=== PATIENT | male | born 1960 | race Caucasian/White ===

== ENCOUNTER → 2019-07-28 10:14 | Outpatient (BNVA) | payer MEDICAID, SELFPAY | PROVIDERS: Family Provider Family Medicine; PCP Plastic Surgery; Visit Provider Psychiatry & Neurology Psychiatry | DX: F31.74 Bipolar disorder, in full remission, most recent episode manic (principal); F60.3 Borderline personality disorder | CPT/HCPCS: 99213 ==

== ENCOUNTER → 2019-11-17 08:54 | Outpatient (BNVA) | payer MEDICAID, SELFPAY | PROVIDERS: Family Provider Family Medicine; Visit Provider Psychiatry & Neurology Psychiatry | DX: F31.9 Bipolar disorder, unspecified (principal); F42.9 Obsessive-compulsive disorder, unspecified; F60.3 Borderline personality disorder; F90.2 Attention-deficit hyperactivity disorder, combined type | CPT/HCPCS: 99213 ==

== ENCOUNTER → 2019-12-11 07:52 | Outpatient (BNVA) | payer MEDICAID, SELFPAY | PROVIDERS: Family Provider Family Medicine; Visit Provider Psychiatry & Neurology Psychiatry | DX: F60.3 Borderline personality disorder (principal); F42.9 Obsessive-compulsive disorder, unspecified; F31.9 Bipolar disorder, unspecified | CPT/HCPCS: 99213 ==

== ENCOUNTER → 2020-02-27 09:17 | Outpatient (BNVA) | payer MEDICAID, SELFPAY | PROVIDERS: Family Provider Family Medicine; Visit Provider Psychiatry & Neurology Psychiatry | DX: F60.3 Borderline personality disorder (principal); F42.9 Obsessive-compulsive disorder, unspecified; F31.9 Bipolar disorder, unspecified | CPT/HCPCS: 99213 ==

== ENCOUNTER 2020-04-26 13:21 | Emergency (ER) | payer MEDICAID, SELFPAY ==
[2020-04-26 14:22] VITALS: BP 126/76; PULSE 85; RESP 16; TEMP 36.9; O2SAT 96; BMI 38.0
--- NOTE | 2020-04-26 15:32 | ED_ITS ---
HPI - Abdominal Pain General: Chief Complaint: Abdominal Pain Stated Complaint: abdominal pain Time Seen by Provider: 04/26/20 15:26 Source: patient Mode of arrival: ambulatory Limitations: no limitations History of Present Illness: HPI narrative: Scott is a nice 59-year-old male comes in complaining of intermittent cramping abdominal pain for the past week. He states the pain comes and goes. He describes it as a cramping pain diffusely throughout his abdomen. He denies any associated fever, nausea or vomiting or diarrhea. He has been having normal stools. He denies any urinary symptoms such as urinary frequency or urgency. He is unaware of anything that makes his symptoms better or worse. He states he had similar symptoms in the past that of just run their course but he states this time his symptoms have persisted longer than normal. He denies any surgeries on his abdomen in the past. Associated Symptoms: Denies chills, coffee ground emesis, constipation, GI cramping, diarrhea, dysuria, fever(s), heartburn, hematochezia, hematuria, hematemesis, melena, nausea, syncope and vomiting Review of Systems Const: Denies: fever(s), chills, body aches, fatigue, malaise or diaphoresis Eyes: Denies: change in vision, blurry vision, photophobia, eye discomfort, eye discharge, eye redness or yellow eyes ENMT: Denies: throat pain, odynophagia, hoarseness, swelling of lips/tongue, ear or mastoid pain, ear discharge, change in hearing or nasal discharge Card: Denies: chest pain, palpitations, irregular heart rhythm, edema, lightheadedness, syncope, pre-syncope, dyspnea on exertion or orthopnea Resp: Denies: dyspnea, productive cough, non-productive cough, wheezing, hemoptysis or chest congestion GI: Reports: abdominal pain; Denies: nausea, vomiting, hematemesis, coffee ground emesis, heartburn, diarrhea, constipation, GI cramping, hematochezia or melena : Denies: flank pain, dysuria, urinary frequency, urinary urgency or hematuria Musc: Denies: neck pain, back pain, extremity pain, extremity swelling, joint pain, joint swelling, joint redness, joint warmth or joint stiffness Skin/Breast: Denies: rash, pruritus, erythema, skin pain or skin tenderness Neuro: Denies: headache(s), numbness in extremities, weakness in extremities, sensory changes, lack of coordination, difficulty walking, dizziness, vertigo, confusion, Slurred speech present or seizure-like activity Humberto/Lymph: Denies: easy bruising, easy bleeding, petechiae, purpura or enlarged lymph nodes All/Imm: Denies: urticaria, throat swelling, tongue swelling, facial swelling or acute wheezing PFSH ED PFSH: Medical History Bipolar disorder Borderline personality disorder Obsessive compulsive disorder Social History Smoking and tobacco status: former smoker Second hand smoke exposure: No Alcohol intake: never Substance/Drug Use: never Physical Exam Const: COMMON NORMALS: no acute distress, patient oriented x3, no limitations and alert GENERAL APPEARANCE: cooperative HENMT: COMMON NORMALS: normocephalic, atraumatic, external ears normal, EAC's normal and Normal external nose present HEAD & SCALP: normal to inspection, normocephalic and atraumatic FACE & SINUS: normal facial exam and face symmetric NOSE: Normal external nose present and Normal nares present EXTERNAL EAR: Yes external ears normal EXTERNAL AUDITORY CANAL: EAC's normal MOUTH: Normal oral and palatal mucosa present, lip normal and tongue normal Eye: COMMON NORMALS: Equal, round and reactive pupils present and conjunctivae normal GENERAL EYE: appearance normal, both eyes and all related structures ALIGNMENT: Yes alignment normal PERIORBITAL: periorbital findings normal EYELID: eyelids normal CONJUNCTIVA: Yes conjunctivae normal SCLERA: sclerae normal PUPIL: Yes Equal, round and reactive pupils present Neck/C-Spine: COMMON NORMALS: full ROM, no lymphadenopathy, supple, no meningeal signs and no JVD GENERAL: Yes normal visual inspection and Yes trachea midline Chest: COMMONS NORMALS: normal inspection of the chest and normal palpation of entire chest wall Resp: COMMON NORMALS: normal respiratory effort, No retractions, No use of accessory muscles and clear to auscultation bilaterally EFFORT & INSPECTION: Yes able to speak in complete sentences and Yes symmetric chest movement AUSCULTATION: clear to auscultation bilaterally, no crackles, no rales, no rhonchi and no wheezes Cardio: COMMON NORMALS: no JVD, regular rate, regular rhythm, S1 normal heart sound present and S2 normal heart sound present RATE: regular rate RHYTHM: regular rhythm HEART SOUNDS: S1 normal heart sound present, S2 normal heart sound present, no click, no gallops, no murmurs and no rubs GI: COMMON NORMALS: Soft to palpation and No hepatosplenomegaly present PALPATION: Yes Soft to palpation, No Tenderness to palpation present (GI), No Guarding due to palpation present (GI), No Rigid due to palpation, Yes No hepatosplenomegaly present, No Hernia present, No Palpable mass present and No Pulsatile mass present : COMMON NORMALS: Yes no CVA tenderness BLADDER/KIDNEY EXAM: Yes no CVA tenderness Back/Pelvis: COMMON NORMALS: no CVA tenderness, thoracic and lumbar spine normal to inspection, no thoracic nor lumbar tenderness and thoraco-lumbar ROM normal Extremity: COMMON NORMALS: normal to inspection, full ROM, capillary refill normal, no joint enlargement, no clubbing, cyanosis or edema and no calf tenderness Neuro: COMMON NORMALS: patient oriented x3, CN's II-XII intact bilaterally, moves all extremities, no focal motor deficits and no sensory deficits noted SENSORIUM/ORIENTATION: Yes alert MENINGEAL SIGNS: Yes no meningeal signs SPEECH: speech normal Psych: COMMON NORMALS: mental status grossly normal, Normal thought process present, cooperative, normal affect, speech normal and activity/motor behavior normal SPEECH: Yes normal speech THOUGHT PROCESS: Normal thought process present Skin: COMMON NORMALS: no rashes or lesions noted, turgor normal, no jaundice, no petechiae and no mottling GENERAL SKIN EXAM: no rashes or lesions noted and turgor normal Course Vital Signs: Vital signs: Vital Signs Temperature 98.3 F 04/26/20 18:36 Pulse Rate 70 04/26/20 18:36 Respiratory Rate 17 04/26/20 18:36 Blood Pressure 140/82 04/26/20 18:36 Pulse Oximetry 98 04/26/20 18:36 MDM - Abdominal Pain MDM Narrative: Medical decision making narrative: 1807 -the patient is feeling better here with just IV hydration. His lipase is not elevated nor are his liver enzymes, T bili or alk phos. He does not have focal right upper quadrant pain. It is possible this is early pancreatitis but at this time it is only by CT and they are calling it mild. Patient does not have significant abdominal tenderness, he is not febrile and he has no nausea or vomiting. Patient would like to go home but understands that this could be the beginning of something that will get worse and agrees to return if he is having any pain at all after the next 12 hours. He understands to return sooner if his symptoms worsen. Lab Data: Attestation: I reviewed the patient's lab results. Labs: Lab Results 04/26/20 04/26/20 04/26/20 Range/Units 15:51 15:51 16:10 WBC 17.2 H (4.0-10.0) 10^3/ uL RBC 4.54 (4.1-5.3) 10^6/u L Hgb 14.6 (11.7-16.6) g/dL Hct 43.3 (42.0-52.0) % MCV 95.4 H (80-94) fL MCH 32.2 (28.0-34.0) pg MCHC 33.7 (30.0-36.0) g/dL RDW 13.3 (12.1-15.1) % Plt Count 321 (130-400) 10^3/c mm MPV 8.9 (7.4-10.4) fL Neut % (Auto) 71.2 % Lymph % (Auto) 16.3 % Geary % (Auto) 9.5 % Eos % (Auto) 2.0 % Baso % (Auto) 0.3 % Neut # (Auto) 12.23 H (1.8-7.7) 10^3/u L Lymph # (Auto) 2.8 (0.8-4.8) 10^3/u L Geary # (Auto) 1.6 H (0.2-0.9) 10^3/u L Eos # (Auto) 0.4 (0.0-0.8) 10^3/u L Baso # (Auto) 0.1 (0.0-0.1) 10^3/u L Nucleated RBC % (a uto) 0 % Nucleated RBCs # 0.0 /100WBC Sodium 136 (136-145) mmol/L Potassium 4.6 (3.5-5.1) mmol/L Chloride 97 L (98-107) mmol/L Carbon Dioxide 28 (22-29) mmol/L Anion Gap 15.6 (5-19) BUN 6 (6-20) mg/dL Creatinine 0.8 (0.7-1.2) mg/dL GFR Calculation 99.3 (90-130) mL/min Glucose 134 H (65-115) mg/dL Calculated Osmolal ity 282 L (285-295) mOsm/k g Calcium 9.5 (8.5-10.5) mg/dL Total Bilirubin 0.3 (0.15-1.2) mg/dL AST 13 (0-40) U/L ALT 11 (0-41) U/L Alkaline Phosphata se 108 (40-130) IU/L Total Protein 7.7 (6.6-8.7) g/dL Albumin 4.4 (3.5-5.2) g/dL Globulin 3.3 (1.3-4.6) g/dL Lipase 30 (13-60) U/L Urine Color Straw (Yellow) Urine Appearance Clear (CLEAR) Urine pH 7 (5-7) Ur Specific Gravit y 1.005 (1.005-1.030) Urine Protein Neg (Negative) Urine Glucose (UA) Norm (Normal) Urine Ketones Negative (Negative) Urine Blood Neg (Negative) Urine Nitrate Negative (Negative) Urine Bilirubin Neg (Negative) Urine Urobilinogen Neg (Negative) mg/dL Ur Leukocyte Taryn ase Negative (Negative) Imaging Data ^: CT Abd/Pel: Radiologist's impression: [place] [address] CT Scan Report Signed with Addenda Patient: Scott Webber Unit #: [id number] : [id number] Age/Sex: 59 / M ADM Date: 04/26/20 Loc: ER Room/Bed: Attending Dr: Ordering Provider/Ordering MD: Lalita Peoples DO Date of Service: 04/26/20 Procedure(s): CT abdomen pelvis w con* [id number] Accession Number(s): [id number] Report Number: [id number]/CT abdomen pelvis w con* [id number] Please note the correction to the original report: The right and left ureters are unremarkable. Stable diffuse, mild wall thickening of the bladder. In the correct clinical setting, this may suggest cystitis. Recommend correlation with laboratory findings. Alternatively, this may be secondary to chronic outlet obstruction. Radiation Dose CTDIVOL = (mGy): DLP = 1706.12 (mGy-cm) Addendum Dictated By: Tayla Walters MD Addendum Signed By: Tayla Walters MD Signed Date/Time: 04/26/20 1749 Addendum Cosigned By: PROCEDURE INFORMATION: Exam: CT Abdomen And Pelvis With Contrast Exam date and time: 04/26/2020 4:35 PM Age: 59 years old Clinical indication: Abdominal pain; Generalized; Prior surgery; Surgery date: 6+ months; Surgery type: Appy, RT orechiectomy TECHNIQUE: Imaging protocol: Computed tomography of the abdomen and pelvis with intravenous contrast. Radiation optimization: All CT scans at this facility use at least one of these dose optimization techniques: automated exposure control; mA and/or kV adjustment per patient size (includes targeted exams where dose is matched to clinical indication); or iterative reconstruction. Contrast material: OMNIPAQUE 300; Contrast volume: 95 ml; Contrast route: INTRAVENOUS (IV); COMPARISON: CT abdomen pelvis w con* [id number] 05/15/2019 12:55 PM RADIATION DOSE METRICS: Total DLP (mGy-cm): 1706.12 FINDINGS: Lungs: Visualized lungs are clear. Pleural space: No pleural effusion. Heart: Visualized portions of the heart are unremarkable. Liver: The visualized liver is unremarkable. Gallbladder and bile ducts: No biliary ductal dilatation. Pancreas: Enlargement of the body and tail of the pancreas with associated peripancreatic inflammatory change and small amount of free fluid, consistent with focal mild acute pancreatitis. No evidence for pancreatic necrosis. Insert pancreatic ductThe gallbladder is contracted. This may be due to a postprandial state. No pericholecystic fluid. Spleen: Calcified granuloma in the spleen. Findings are stable. Adrenals: The right and left adrenal glands are unremarkable. Kidneys and ureters: Stable subcentimeter hypodense foci in both right and left kidneys that are too small to characterize, however likely represent small cysts. Stable indeterminate hyperdense focus in the right kidney. Hounsfield units show density greater than expected for simple fluid. This measures 1.4 x 1.6 cm, stable in size (series 2, image 36). Stable cyst in the left kidney measuring 1.6 cm (series 2, image 33). Stomach and bowel: No obstruction. No mucosal thickening. Appendix: Appendix not definitely visualized. No inflammatory changes in the pericecal region however. Intraperitoneal space: No free intraperitoneal air. No ascites. No loculated fluid collections to suggest an abscess. Vasculature: Minimal atherosclerotic changes in the visualized arteries. No evidence for aortic aneurysm or aortic dissection. Hepatic veins, portal veins, splenic vein, and SMV are patent. Lymph nodes: No lymphadenopathy. Urinary bladder: Insert uretersStable diffuse, mild wall thickening of the bladder. Reproductive: Unremarkable as visualized. Bones/joints: Mild degenerative changes at both the right and left hips. Multilevel degenerative changes of varying severity in the visualized spine. Stable left unilateral pars defect at L5. Soft tissues: No acute abnormality in the extra-abdominal soft tissues. CT/CT abdomen pelvis w con* [id number] IMPRESSION: 1. Changes consistent with focal mild acute pancreatitis involving the body and tail of the pancreas. 2. Stable indeterminate hyperdense focus in the right kidney. 3. Insert uretersStable diffuse, mild wall thickening of the bladder. In the correct clinical setting, this may suggest cystitis. Recommend correlation with laboratory findings. Alternatively, this may be secondary to chronic outlet obstruction. 4. Stable left unilateral pars defect at L5. 5. Incidental/nonacute findings are listed in the report. Radiation Dose CTDIVOL = (mGy): DLP = 1706.12 (mGy-cm) Dictated By: Tayla Walters MD Signed By: Tayla Walters MD Signed Date/Time: 04/26/201711 DD/ 09 Discharge Plan Discharge Patient Disposition: Home Clinical Impression: Abdominal pain Qualifiers: Abdominal location: generalized Qualified Code(s): R10.84 - Generalized abdominal pain Pancreatitis Qualifiers: Chronicity: acute Pancreatitis type: unspecified pancreatitis type Acute pancreatitis complication: no infection or necrosis Qualified Code(s): K85.90 - Acute pancreatitis without necrosis or infection, unspecified Condition: Stable Prescriptions: [place] 5-325 mg tablet 1 tab PO Q6H PRN (Reason: pain) 5 Days Qty: 20 RF: 0 Zofran 4 mg tablet 4 mg PO Q6H PRN (Reason: nausea and vomiting) Qty: 20 RF: 0 No Action polyethylene glycol 3350 [Miralax] 17 gram powder in packet 17 gm PO QDAY RF: 0 esomeprazole magnesium [Nexium] 40 mg capsule,delayed release(DR/EC) 40 mg PO DAILY RF: 0 loratadine 10 mg capsule 10 mg PO DAILY RF: 0 acyclovir 200 mg capsule 200 mg PO DAILY RF: 0 tamsulosin [Flomax] 0.4 mg capsule 0.4 mg PO DAILY RF: 0 Excedrin Migraine 250-250-65 mg tablet 1 tab PO DAILY PRN (Reason: pain) RF: 0 celecoxib 100 mg capsule 100 mg PO BID RF: 0 fluticasone propionate 50 mcg/actuation spray,suspension 1 spray INTRANASAL BID RF: 0 pantoprazole 40 mg tablet,delayed release (DR/EC) 40 mg PO DAILY RF: 0 clomipramine 50 mg capsule 250 mg PO .HS Qty: 150 RF: 2 clonazepam [Klonopin] 0.5 mg tablet 0.25 mg PO BID Qty: 30 RF: 2 paliperidone [Invega] 6 mg tablet extended release 24hr 6 mg PO QAM Qty: 30 RF: 2 propranolol 20 mg tablet 20 mg PO BID Qty: 60 RF: 2 trazodone 50 mg tablet 50 mg PO .HS Qty: 30 RF: 2 Discharge Orders: Discharge Order (Routine); Ordered 04/26/20 Ordered By: Lalita Peoples Referrals: Ham Doe Jr, MD [Primary Care Provider] - 1-3 days Discharge Diet: Clear Liquid Patient Instructions: Pancreatitis (ED), Abdominal Pain (ED) Activity Restrictions/Additional Instructions: Please return to the ER immediately for any of the signs or symptoms listed on your discharge instruction sheets, worsening/changing of your symptoms, you are not getting better as quickly as expected, or for ANY other cause or concerns. Follow a clear liquid diet and do not advance this until your pain is completely subsided. Take the medicine I have given you for pain and nausea. Return to the ER if you are having any pain at all within the next 8 to 12 hours. Return sooner for increased pain, fever, vomiting, or for any other cause for concern. Discharge Date/Time: 04/26/20 18:36 Coding Level of Care Code ED Refrigerator Car Icer for Chg Fwd Exam Comprehensive
[2020-04-26 15:58] LABS: Basophils # 0.1 10^3/uL (0.0-0.1); Basophils % 0.3 %; Eosinophils # 0.4 10^3/uL (0.0-0.8); Hematocrit 43.3 % (42.0-52.0); Hemoglobin 14.6 g/dL (11.7-16.6); Lymphocytes # 2.8 10^3/uL (0.8-4.8); Lymphocytes % 16.3 %; Mean Corpuscular HGB Conc 33.7 g/dL (30.0-36.0); Mean Corpuscular Hemoglobin 32.2 pg (28.0-34.0); Mean Corpuscular Volume 95.4 fL (80-94); Mean Platelet Volume 8.9 fL (7.4-10.4); Monocytes # 1.6 10^3/uL (0.2-0.9); Monocytes % 9.5 %; Neutrophils # 12.23 10^3/uL (1.8-7.7); Neutrophils % 71.2 %; Nucleated Red Blood Cells % 0 %; Platelet Count 321 10^3/cmm (130-400); Red Blood Count 4.54 10^6/uL (4.1-5.3); Red Cell Distribution Width 13.3 % (12.1-15.1); White Blood Count 17.2 10^3/uL (4.0-10.0)
--- NOTE | 2020-04-26 16:15 | CTR_ITS ---
PROCEDURE INFORMATION: Exam: CT Abdomen And Pelvis With Contrast Exam date and time: 04/26/2020 4:35 PM Age: 59 years old Clinical indication: Abdominal pain; Generalized; Prior surgery; Surgery date: 6+ months; Surgery type: Appy, RT orechiectomy TECHNIQUE: Imaging protocol: Computed tomography of the abdomen and pelvis with intravenous contrast. Radiation optimization: All CT scans at this facility use at least one of these dose optimization techniques: automated exposure control; mA and/or kV adjustment per patient size (includes targeted exams where dose is matched to clinical indication); or iterative reconstruction. Contrast material: OMNIPAQUE 300; Contrast volume: 95 ml; Contrast route: INTRAVENOUS (IV); COMPARISON: CT abdomen pelvis w con* [id number] 05/15/2019 12:55 PM RADIATION DOSE METRICS: Total DLP (mGy-cm): 1706.12 FINDINGS: Lungs: Visualized lungs are clear. Pleural space: No pleural effusion. Heart: Visualized portions of the heart are unremarkable. Liver: The visualized liver is unremarkable. Gallbladder and bile ducts: No biliary ductal dilatation. Pancreas: Enlargement of the body and tail of the pancreas with associated peripancreatic inflammatory change and small amount of free fluid, consistent with focal mild acute pancreatitis. No evidence for pancreatic necrosis. Insert pancreatic ductThe gallbladder is contracted. This may be due to a postprandial state. No pericholecystic fluid. Spleen: Calcified granuloma in the spleen. Findings are stable. Adrenals: The right and left adrenal glands are unremarkable. Kidneys and ureters: Stable subcentimeter hypodense foci in both right and left kidneys that are too small to characterize, however likely represent small cysts. Stable indeterminate hyperdense focus in the right kidney. Hounsfield units show density greater than expected for simple fluid. This measures 1.4 x 1.6 cm, stable in size (series 2, image 36). Stable cyst in the left kidney measuring 1.6 cm (series 2, image 33). Stomach and bowel: No obstruction. No mucosal thickening. Appendix: Appendix not definitely visualized. No inflammatory changes in the pericecal region however. Intraperitoneal space: No free intraperitoneal air. No ascites. No loculated fluid collections to suggest an abscess. Vasculature: Minimal atherosclerotic changes in the visualized arteries. No evidence for aortic aneurysm or aortic dissection. Hepatic veins, portal veins, splenic vein, and SMV are patent. Lymph nodes: No lymphadenopathy. Urinary bladder: Insert uretersStable diffuse, mild wall thickening of the bladder. Reproductive: Unremarkable as visualized. Bones/joints: Mild degenerative changes at both the right and left hips. Multilevel degenerative changes of varying severity in the visualized spine. Stable left unilateral pars defect at L5. Soft tissues: No acute abnormality in the extra-abdominal soft tissues. CT/CT abdomen pelvis w con* [id number] IMPRESSION: 1. Changes consistent with focal mild acute pancreatitis involving the body and tail of the pancreas. 2. Stable indeterminate hyperdense focus in the right kidney. 3. Insert uretersStable diffuse, mild wall thickening of the bladder. In the correct clinical setting, this may suggest cystitis. Recommend correlation with laboratory findings. Alternatively, this may be secondary to chronic outlet obstruction. 4. Stable left unilateral pars defect at L5. 5. Incidental/nonacute findings are listed in the report. Radiation Dose CTDIVOL = (mGy): DLP = 1706.12 (mGy-cm)
[2020-04-26 16:26] VITALS: BP 124/82; PULSE 84; RESP 17; O2SAT 97
[2020-04-26 16:28] LABS: Alanine Aminotransferase 11 U/L (0-41); Albumin Level 4.4 g/dL (3.5-5.2); Alkaline Phosphatase 108 IU/L (40-130); Anion Gap 15.6 (5-19); Aspartate Amino Transferase 13 U/L (0-40); Blood Urea Nitrogen 6 mg/dL (6-20); Calcium 9.5 mg/dL (8.5-10.5); Carbon Dioxide 28 mmol/L (22-29); Chloride 97 mmol/L (98-107); Globulin 3.3 g/dL (1.3-4.6); Glomerular Filtration Rate 99.3 mL/min (90-130); Glucose 134 mg/dL (65-115); Lipase 30 U/L (13-60); Osmolality Calculated 282 mOsm/kg (285-295); Potassium 4.6 mmol/L (3.5-5.1); Sodium 136 mmol/L (136-145); Total Bilirubin 0.3 mg/dL (0.15-1.2); Total Protein 7.7 g/dL (6.6-8.7)
[2020-04-26 16:32] LABS: Add Urine Microscopic? NO
[2020-04-26] MEDS: iohexol 300 mg/mL 100 mL Btl IV (16:48)
[2020-04-26 16:53] LABS: Bilirubin Urine Neg (Negative); Blood Urine Neg (Negative); Glucose Urine UA Norm (Normal); Ketones Urine Negative (Negative); Leukocyte Esterase Urine Negative (Negative); Nitrate Urine Negative (Negative); Protein Urine Neg (Negative); Specific Gravity, Urine 1.005 (1.005-1.030); Urine Appearance Clear (CLEAR); Urine Color Straw (Yellow); Urobilinogen Urine Neg (Negative); pH Urine 7 (5-7)
[2020-04-26] MEDS: sodium chloride 0.9% 1,000 ML 999 ML IV (16:55)
[2020-04-26 16:56] VITALS: BP 120/71; PULSE 73; RESP 16; O2SAT 97
[2020-04-26 17:30] VITALS: BP 123/81; PULSE 76; RESP 17; O2SAT 98
[2020-04-26 18:28] VITALS: RESP 17; O2SAT 97
[2020-04-26] MEDS: morphine 4 mg/mL SDV 1 mL IVP (18:28)
[2020-04-26] MEDS: ondansetron 2 mg/ML SDV 2 mL 4 MG IVP (18:28)
[2020-04-26 18:36] VITALS: BP 140/82; PULSE 70; RESP 17; TEMP 36.8; O2SAT 98
== END 2020-04-26 18:36 | disposition home or self-care (01) ==
PROVIDERS: Nurse Practitioner Family; Emergency Provider Emergency Medicine; PCP Family Medicine
DX: K85.90 Acute pancreatitis without necrosis or infection, unspecified (principal); Z87.891 Personal history of nicotine dependence
CPT/HCPCS: 12345; 36415; 74177; 80053; 81003; 83690; 85025; 96361; 96374; 96375; 99283; J2270; J2405; J7030; Q9967

== ENCOUNTER → 2020-06-17 07:57 | Outpatient (BNVA) | payer MEDICAID, SELFPAY | PROVIDERS: PCP Family Medicine; Visit Provider Psychiatry & Neurology Psychiatry | DX: F25.9 Schizoaffective disorder, unspecified (principal) | CPT/HCPCS: 99213 ==

== ENCOUNTER → 2020-09-09 08:05 | Outpatient (BNVA) | payer MEDICAID, SELFPAY | PROVIDERS: PCP Family Medicine; Visit Provider Psychiatry & Neurology Psychiatry | DX: F25.9 Schizoaffective disorder, unspecified (principal) | CPT/HCPCS: 99213 ==

== ENCOUNTER → 2020-12-02 10:15 | Outpatient (BNVA) | payer MEDICAID, SELFPAY | PROVIDERS: PCP Family Medicine; Visit Provider Psychiatry & Neurology Psychiatry | DX: F25.9 Schizoaffective disorder, unspecified (principal) | CPT/HCPCS: 99214 ==

== ENCOUNTER → 2021-01-21 08:30 | Outpatient (BNVA) | payer MEDICAID, SELFPAY | PROVIDERS: PCP Family Medicine; Visit Provider Psychiatry & Neurology Psychiatry | DX: F25.9 Schizoaffective disorder, unspecified (principal) | CPT/HCPCS: 99213 ==

== ENCOUNTER → 2021-03-03 14:36 | Outpatient (BNVA) | payer MEDICAID, SELFPAY | PROVIDERS: PCP Family Medicine; Visit Provider Family Medicine | DX: Z11.59 Encounter for screening for other viral diseases (principal); F25.9 Schizoaffective disorder, unspecified; Z79.899 Other long term (current) drug therapy; N39.0 Urinary tract infection, site not specified; B00.89 Other herpesviral infection; Z11.4 Encounter for screening for human immunodeficiency virus [HIV]; K21.9 Gastro-esophageal reflux disease without esophagitis; A60.02 Herpesviral infection of other male genital organs | CPT/HCPCS: 80053; 80061; 81000; 83036; 84443; 85025; 86803; 87806 ==

== ENCOUNTER → 2021-04-23 09:46 | Outpatient (BNVA) | payer MEDICAID, SELFPAY | PROVIDERS: PCP Family Medicine; Visit Provider Psychiatry & Neurology Psychiatry | DX: F25.9 Schizoaffective disorder, unspecified (principal) | CPT/HCPCS: 99213 ==

== ENCOUNTER → 2021-05-15 14:01 | Outpatient (BNVA) | payer MEDICAID, SELFPAY | PROVIDERS: PCP Family Medicine; Visit Provider Family Medicine | DX: R07.9 Chest pain, unspecified (principal) | CPT/HCPCS: 71046; 80053; 83690; 84484 ==

== ENCOUNTER → 2021-06-12 17:42 | Outpatient (BNVA) | payer MEDICAID, SELFPAY | PROVIDERS: PCP Family Medicine; Visit Provider Surgery | DX: Z20.822 Contact with and (suspected) exposure to COVID-19 (principal); Z11.52 Encounter for screening for COVID-19 | CPT/HCPCS: 87635 ==

== ENCOUNTER 2021-06-18 06:28 | Day surgery (SDC) | payer MEDICAID, SELFPAY ==
[2021-06-16 13:52] VITALS: BMI 32.6
[2021-06-18 06:56] VITALS: BP 123/75; PULSE 66; RESP 16; TEMP 36.2; O2SAT 96
[2021-06-18] MEDS: sodium chloride 0.9% 1,000 ML 30 ML IV (07:06)
--- NOTE | 2021-06-18 07:13 | W.PM.OPSFHP ---
Same Day Surgery H&P Indication for Procedure/HPI DATE OF PROCEDURE: June 18, 2021 CHIEF COMPLAINT/INDICATIONFOR SURGICAL PROCEDURE: Acid reflux PREOP DIAGNOSIS: Acid reflux PLANNED PROCEDRUE: Operation Date: 06/18/21 07:30 Proposed Procedures p EGD 46104 K21.9(Not Applicable) - Kamran Salguero MD 04/17/2021 This is a pleasant 60 years old gentleman referred to my practice to discuss diagnostic EGD. As he has been having persistent acid reflux and was placed on PPI therapy for more than 6 months patient denies any weight loss or bleeding per rectum. And is updated on his colonoscopy. Reports his GERD symptoms has been getting worse. Undergone a CT scan of the abdomen and pelvis on 04/26/2020 that showed 1. Changes consistent with focal mild acute pancreatitis involving the body and tail of the pancreas. 2. Stable indeterminate hyperdense focus in the right kidney. 3. Insert uretersStable diffuse, mild wall thickening of the bladder. In the correct clinical setting, this may suggest cystitis. Recommend correlation with laboratory findings. Alternatively, this may be secondary to chronic outlet obstruction. 4. Stable left unilateral pars defect at L5. 5. Incidental/nonacute findings are listed in the report. 06/18/21 Patient comes today for diagnostic EGD. ROS All systems have been reviewed negative all systems have been reviewed negative except as per the above or per problem list Medications/Allergies* Home Medications Medication Instructions Recorded Confirmed Type vrmqale-luqczymmmjxze-ltojwcor 250 1 tab PO DAILY PRN tab 07/27/19 06/18/21 History mg-250 mg-65 mg tablet fluticasone propionate 50 1 spray INTRANASAL BID 07/27/19 06/18/21 History mcg/actuation nasal spray,suspension docusate sodium 100 mg capsule 100 mg PO BID 01/21/21 06/18/21 History Allergies/Adverse Reactions Allergy/AdvReac Type Severity Reaction Status Date / Time Penicillins AdvReac Intermediate Rash & Verified 06/18/21 07:15 Itching Current Medications: Generic Name Dose Route Start Last Admin Trade Name Freq PRN Reason Stop Dose Admin Sodium Chloride 1,000 mls @ 30 mls/hr 06/18/21 06:45 06/18/21 07:06 Sodium Chloride 0.9% IV 30 mls/hr .Q24H KIMBERLY Administration Pertinent History/Comorbid Conditions* Medical History (Updated 05/15/21 @ 13:27 by Genaro Manzo, DO) Bipolar disorder Borderline personality disorder Obsessive compulsive disorder Psychiatric care Social History Smoking and tobacco status: never smoked Quit status (tobacco): has quit using tobacco Year quit tobacco: 1994 Second hand smoke exposure: No Alcohol intake: never Pertinent Exam Findings alert, oriented x 3 and procedure specific exam findings (Abdominal examination nontender nondistended soft) Recommendations Surgery/Procedure today (EGD with possible biopsy) Coding Level of Care Code Acute Executive Chef for g Fwnelli
--- NOTE | 2021-06-18 07:50 | ANES.PREANE2 ---
Pre-Anesthetic Assessment Pre-Anesthetic Assessment: Height/Weight: Height 1.73 m Weight 97.522 kg Temp Pulse Resp BP Pulse Ox 97.1 F L 66 16 123/75 96 06/18/21 06:56 06/18/21 06:56 06/18/21 06:56 06/18/21 06:56 06/18/21 06:56 Preop Diagnosis: Acid reflux Proposed Procedure: Operation Date: 06/18/21 07:30 Proposed Procedures p EGD 32169 K21.9(Not Applicable) - Kamran Salguero MD Was Beta Omar taken within 24 hours: N/A Was Clonidine taken within 24 hours: N/A Last intake: Intake Last Liquid Date 06/17/21 Last Liquid Time 21:00 Last Solid Date 06/17/21 Last Solid Time 21:00 Social: Social History: No alcohol and No tobacco Exam: Pre-Anes Outpt Exam: oriented x 3 Airway: Submandibular: WNL Cervical ROM: WNL MP: 3 Dentition: Other (teeth only on bottom) History/ROS: No significant history except as noted Pulmonary: Pulmonary: Sleep apnea CV/HEM: CV/HEM: None reported : : None reported Hepatic: Hepatic: None reported GI: GI: GERD Metabolic: Metabolic: None reported Musc/skel: Musc/skel: Lower Back Pain Neuropsych: Neuropsych: Anxiety, Bipolar and Depression Anesthetic Plan: ASA status: 3 Anesthesia: Anesthesia Evaluation and MAC Risk of > 500 ml blood loss (7ml/kg in children): No Meds/Allergies Current Medications: Current Medications Generic Name Dose Route Start Last Admin Trade Name Freq PRN Reason Stop Dose Admin Sodium Chloride 1,000 mls @ 30 ml s/hr 06/18/21 06:45 06/18/21 07:06 Sodium Chloride 0.9% IV 30 mls/hr .Q24H KIMBERLY Administration PFSH Anesthesia PFSH: Medical History (Updated 05/15/21 @ 13:27 by Genaro Manzo DO) Bipolar disorder Borderline personality disorder Obsessive compulsive disorder Psychiatric care Social History Smoking and tobacco status: never smoked Quit status (tobacco): has quit using tobacco Year quit tobacco: 1994 Second hand smoke exposure: No Alcohol intake: never Data Anesthesia Cardiac Studies: No Data to Display
[2021-06-18 08:11] VITALS: BP 147/85; PULSE 62; RESP 16; TEMP 36.4; O2SAT 91
[2021-06-18 08:20] VITALS: BP 130/83; PULSE 65; RESP 18; O2SAT 90
--- NOTE | 2021-06-18 13:37 | ANE.PACU2 ---
Inpatient post-anesthesia follow up: Airway intact: Yes Vital signs: Temperature 97.6 F Pulse Rate 65 Respiratory Rate 18 Blood Pressure 130/83 Pulse Oximetry 90 Oxygen Delivery Me thod Room Air Oxygen Flow Rate Fraction of Inspir ed Oxygen Hydration adequate: Yes Nausea and vomiting: No Pain level: 2 Mental status: Baseline
[2021-06-19 06:09] LABS: H. Pylori / CLO Test Negative
== END 2021-06-18 08:34 | disposition home or self-care (01) ==
PROVIDERS: PCP Family Medicine; Visit Provider Surgery
PROC: 0DJ08ZZ Inspection of Upper Intestinal Tract, Via Natural or Artificial Opening Endoscopic (ICD-10-PCS; CPT 43235; principal; 2021-06-18 07:30)
DX: K21.00 Gastro-esophageal reflux disease with esophagitis, without bleeding (principal); K29.70 Gastritis, unspecified, without bleeding; F41.9 Anxiety disorder, unspecified; F32.A Depression, unspecified; Z87.891 Personal history of nicotine dependence; Z79.82 Long term (current) use of aspirin
CPT/HCPCS: 43239; 87077; 96360; J2704; J7030

== ENCOUNTER → 2021-07-15 09:08 | Outpatient (BNVA) | payer MEDICAID, SELFPAY | PROVIDERS: PCP Family Medicine; Visit Provider Psychiatry & Neurology Psychiatry | DX: F25.9 Schizoaffective disorder, unspecified (principal) | CPT/HCPCS: 99213 ==

== ENCOUNTER → 2021-08-19 10:47 | Outpatient (BNVA) | payer MEDICAID, SELFPAY | PROVIDERS: PCP Family Medicine; Visit Provider Family Medicine | DX: R35.0 Frequency of micturition (principal); N41.0 Acute prostatitis | CPT/HCPCS: 80048; 81000; 85025; G0103 ==

== ENCOUNTER → 2021-10-22 09:02 | Outpatient (BNVA) | payer MEDICAID, SELFPAY | PROVIDERS: PCP Family Medicine; Visit Provider Psychiatry & Neurology Psychiatry | DX: F25.9 Schizoaffective disorder, unspecified (principal) | CPT/HCPCS: 99213 ==

== ENCOUNTER → 2021-10-28 13:57 | Outpatient (BNVA) | payer MEDICAID, SELFPAY | PROVIDERS: PCP Family Medicine; Visit Provider Family Medicine | DX: R10.9 Unspecified abdominal pain (principal); R31.9 Hematuria, unspecified; J06.9 Acute upper respiratory infection, unspecified; K59.09 Other constipation | CPT/HCPCS: 81000; 87400 ==

== ENCOUNTER → 2021-11-27 09:29 | Outpatient (BNVA) | payer MEDICAID, SELFPAY | PROVIDERS: PCP Family Medicine; Referring Provider Family Medicine; Visit Provider Nurse Practitioner Family | DX: N41.9 Inflammatory disease of prostate, unspecified (principal); R31.0 Gross hematuria | CPT/HCPCS: 51741; 51798; 81003; 87086; 99203 ==

== ENCOUNTER → 2022-01-15 09:00 | Outpatient (BNVA) | payer MEDICAID, SELFPAY | PROVIDERS: PCP Family Medicine; Visit Provider Urology | DX: R31.0 Gross hematuria (principal); N41.9 Inflammatory disease of prostate, unspecified | CPT/HCPCS: 51741; 51798; 52000; 81003; 99213 ==

== ENCOUNTER 2022-04-16 11:58 | Outpatient (CLI) | payer MEDICAID, SELFPAY ==
[2022-04-16 13:59] LABS: PSA Screen - Urology 0.61 ng/mL (0-4)
== END 2022-04-16 11:59 | disposition home or self-care (01) ==
LOC: LAB 12:00
PROVIDERS: PCP Family Medicine; Visit Provider Urology
DX: Z12.5 Encounter for screening for malignant neoplasm of prostate (principal); N41.9 Inflammatory disease of prostate, unspecified; R31.0 Gross hematuria
CPT/HCPCS: 81003; 99213; G0103

== ENCOUNTER → 2022-07-23 09:35 | Outpatient (BNVA) | payer MEDICAID, SELFPAY | PROVIDERS: PCP Family Medicine; Visit Provider Family Medicine | DX: Z79.899 Other long term (current) drug therapy (principal); K59.09 Other constipation | CPT/HCPCS: 80053; 80061; 84443; 85025; G0103 ==

== ENCOUNTER → 2022-09-16 13:06 | Outpatient (BNVA) | payer MEDICAID, SELFPAY | PROVIDERS: PCP Family Medicine; Visit Provider Urology | DX: N41.9 Inflammatory disease of prostate, unspecified (principal); N40.1 Benign prostatic hyperplasia with lower urinary tract symptoms | CPT/HCPCS: 51741; 51798; 81003; 99213 ==

== ENCOUNTER → 2022-12-15 13:16 | Outpatient (BNVA) | payer MEDICAID, SELFPAY | PROVIDERS: PCP Family Medicine; Visit Provider Urology | DX: N40.1 Benign prostatic hyperplasia with lower urinary tract symptoms (principal); N41.9 Inflammatory disease of prostate, unspecified | CPT/HCPCS: 51741; 51798; 81003; 99213 ==

== ENCOUNTER → 2023-09-22 10:04 | Outpatient (BNVA) | payer MEDICAID, SELFPAY | PROVIDERS: PCP Family Medicine; Visit Provider Family Medicine | DX: N41.0 Acute prostatitis; F25.9 Schizoaffective disorder, unspecified; Z11.4 Encounter for screening for human immunodeficiency virus [HIV]; E83.42 Hypomagnesemia | CPT/HCPCS: 80053; 80061; 82607; 83036; 83735; 84443; 85025; 87806; G0103 ==

== ENCOUNTER 2023-10-14 17:51 | Emergency (ER) | payer MEDICAID, SELFPAY ==
[2023-09-23 09:51] VITALS: BP 131/79; BMI 37.7
[2023-10-14 17:53] VITALS: BP 121/79; PULSE 65; RESP 18; TEMP 36.6; O2SAT 96; BMI 38.9
--- NOTE | 2023-10-14 18:42 | CTR_ITS ---
PROCEDURE INFORMATION: Exam: CT Abdomen And Pelvis Without Contrast Exam date and time: 10/14/2023 7:15 PM Age: 63 years old Clinical indication: Abdominal pain; Flank; Left; Additional info: Left flank pain, hematuria, HX of kidney stones TECHNIQUE: Imaging protocol: Computed tomography of the abdomen and pelvis without contrast. Radiation optimization: All CT scans at this facility use at least one of these dose optimization techniques: automated exposure control; mA and/or kV adjustment per patient size (includes targeted exams where dose is matched to clinical indication); or iterative reconstruction. COMPARISON: CT abdomen pelvis w con* [id number] 04/26/2020 4:43 PM RADIATION DOSE METRICS: Total DLP (mGy-cm): 1113.56 FINDINGS: Liver: Normal. No mass. Gallbladder and bile ducts: Contracted gallbladder with small stones or sludge balls. No visible wall thickening. The bile ducts are normal. Pancreas: Normal. No ductal dilation. Spleen: Calcified granuloma in the spleen. Adrenal glands: Normal. No mass. Kidneys and ureters: Left renal cyst, Hounsfield units less than 20. Additional cortical lesions in both kidneys are too small to characterize but are most likely cysts. No follow-up imaging recommended. No calculus or hydronephrosis. Stomach and bowel: Food distended stomach. No wall thickening. Mild diverticulosis of the colon. No diverticulitis. The small bowel is unremarkable. No obstruction. Appendix: The appendix is not visualized. No secondary signs of appendicitis. Intraperitoneal space: Unremarkable. No free air. No significant fluid collection. Vasculature: Mild calcified arterial plaque. No aneurysm. Lymph nodes: Unremarkable. No enlarged lymph nodes. Urinary bladder: Unremarkable as visualized. Reproductive: Small calcifications in a mildly enlarged prostate. Bones/joints: Mild degenerative changes in the spine. No acute fracture. Soft tissues: Unremarkable. CT/CT kidney stone [id number] IMPRESSION: 1. No acute findings. 2. Mild diverticulosis of the colon. No diverticulitis. COMMENTS: Consistent with the [employer]'s Incidental Findings Committee white paper (J Am Az Radiol 2018): Any incidental renal lesion less than 1 cm or classified as too small to characterize, or any incidental cystic renal lesion characterized as simple-appearing, is likely benign. No follow-up imaging is recommended for these lesions per consensus recommendations based on imaging criteria.
[2023-10-14 18:58] LABS: Basophils # 0.1 10^3/uL (0.0-0.1); Basophils % 0.9 %; Eosinophils # 0.3 10^3/uL (0.0-0.8); Eosinophils % 3.5 %; Hematocrit 40.3 % (37-53); Lymphocytes # 2.9 10^3/uL (0.8-4.8); Mean Corpuscular HGB Conc 33.7 g/dL (30-55); Mean Corpuscular Hemoglobin 32.3 pg (27-33); Mean Corpuscular Volume 95.7 fl (82-101); Monocytes # 0.9 10^3/uL (0.2-0.9); Monocytes % 9.5 %; Neutrophils % 54.5 %; Nucleated Red Blood Cells % 0 %; Platelet Count 255 10^3/cmm (157-399); Red Blood Count 4.21 10^6/uL (3.85-5.65); Red Cell Distribution Width 13.2 % (12.1-15.1); White Blood Count 9.36 10^3/uL (3.29-11.43)
[2023-10-14 19:15] LABS: Alanine Aminotransferase 14 U/L (0-41); Albumin Level 4.2 g/dL (3.5-5.2); Alkaline Phosphatase 91 U/L (40-130); Anion Gap 16.3 (5-19); Aspartate Amino Transferase 13 U/L (0-40); Blood Urea Nitrogen 8 mg/dL (8-23); Carbon Dioxide 26 mmol/L (22-29); Chloride 100 mmol/L (98-107); Creatinine Clr Calc Pharmacy 114.8848; Globulin 2.7 g/dL (1.3-4.6); Glucose 122 mg/dL (65-115); Lipase 16 U/L (13-60); Osmolality Calculated 286 mOsm/kg (285-295); Potassium 4.3 mmol/L (3.5-5.1); Sodium 138 mmol/L (136-145); Total Bilirubin 0.3 mg/dL (0.15-1.2); Total Protein 6.9 g/dL (6.6-8.7)
--- NOTE | 2023-10-14 19:17 | W.ED.ABDPA2 ---
HPI - Abdominal Pain General: Chief Complaint: Abdominal Pain Stated Complaint: left side pain Time Seen by Provider: 10/14/23 18:32 History of Present Illness: Patient presents to the ER with left flank pain that started this morning. Patient states he has a history of kidney stones. Patient is reporting some bloody urine with dysuria and frequency. Patient thinks this may have been a kidney stone he may have passed that he is not for sure. Patient has had the same feeling like this before when he had stones in the past. 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 Schizoaffective disorder Obsessive compulsive disorder Bipolar disorder Family History Father , AT 72 Alzheimer's dementia Mother Heart disease Social History Smoking and tobacco/nicotine status: never used tobacco/nicotine Quit status (tobacco/nicotine): has quit using Year quit tobacco: 1999 Second hand smoke exposure: No Alcohol intake: never Substance/Drug Use: never Marital status: Single Current occupational status: disabled Physical Exam Const: COMMON NORMALS: no acute distress, average body habitus, patient oriented x3, no limitations, healthy appearing, alert and well nourished HENMT: COMMON NORMALS: normocephalic, atraumatic, hearing grossly normal bilaterally, external ears normal, Normal external nose present, moist oral mucous membranes and oropharynx normal HEAD & SCALP: normocephalic and atraumatic NOSE: Normal external nose present EXTERNAL EAR: Yes external ears normal Neck/C-Spine: COMMON NORMALS: no JVD Chest: COMMONS NORMALS: normal inspection of the chest and normal palpation of entire chest wall Resp: COMMON NORMALS: normal respiratory effort, No retractions, No use of accessory muscles and clear to auscultation bilaterally AUSCULTATION: clear to auscultation bilaterally Cardio: COMMON NORMALS: no JVD, regular rate, regular rhythm, S1 normal heart sound present, S2 normal heart sound present, No gallops present (Cardio), No clicks present (Cardio), No murmurs present (Cardio) and No rub (Cardio) RATE: regular rate RHYTHM: regular rhythm HEART SOUNDS: S1 normal heart sound present and S2 normal heart sound present GI: COMMON NORMALS: Normal to inspection, nondistended, normoactive bowel sounds present, Soft to palpation, non-tender, No hepatosplenomegaly present and no masses PALPATION: Yes Soft to palpation and Yes No hepatosplenomegaly present Neuro: COMMON NORMALS: patient oriented x3 SENSORIUM/ORIENTATION: Yes alert Course Vital Signs: Vital signs: Vital Signs Temperature 97.9 F 10/14/23 17:53 Pulse Rate 65 10/14/23 17:53 Respiratory Rate 18 10/14/23 17:53 Blood Pressure 121/79 10/14/23 17:53 Pulse Oximetry 96 10/14/23 17:53 Oxygen Delivery Me thod Room Air 10/14/23 17:53 MDM - Abdominal Pain Medical Decision Making Physical exam was performed lab work was obtained as well as a noncontrast CT scan that showed no acute findings. We will refill patient's Bactrim as he is on it long-term for chronic prostatitis then will discharge patient to follow-up with his PCP Differential Diagnosis Likely calculus of kidney; Unlikely abdominal pain, acute appendicitis, constipation, diverticulitis, endometriosis, gastroenteritis, pancreatitis or small bowel obstruction Medical Records I reviewed the patient's medical records. Lab Data I reviewed the patient's lab results. 10/14/23 18:52 10/14/23 18:52 Labs/Radiology: Radiology Impressions Abdomen/Pelvis CT 10/14/23 18:42 IMPRESSION: 1. No acute findings. 2. Mild diverticulosis of the colon. No diverticulitis. COMMENTS: Consistent with the [employer]'s Incidental Findings Committee white paper (J Am Az Radiol 2018): Any incidental renal lesion less than 1 cm or classified as too small to characterize, or any incidental cystic renal lesion characterized as simple-appearing, is likely benign. No follow-up imaging is recommended for these lesions per consensus recommendations based on imaging criteria. Laboratory Results WBC 9.36 10^3/uL (3.29-11.43) 10/14/23 18:52 RBC 4.21 10^6/uL (3.85-5.65) 10/14/23 18:52 Hgb 13.60 g/dL (11.27-16.99) 10/14/23 18:52 Hct 40.3 % (37-53) 10/14/23 18:52 MCV 95.7 fl (82-101) 10/14/23 18:52 MCH 32.3 pg (27-33) 10/14/23 18:52 MCHC 33.7 g/dL (30-55) 10/14/23 18:52 RDW 13.2 % (12.1-15.1) 10/14/23 18:52 Plt Count 255 10^3/cmm (157-399) 10/14/23 18:52 MPV 9.0 fL (7.4-10.4) 10/14/23 18:52 Neut % (Auto) 54.5 % 10/14/23 18:52 Lymph % (Auto) 31.0 % 10/14/23 18:52 [place] % (Auto) 9.5 % 10/14/23 18:52 Eos % (Auto) 3.5 % 10/14/23 18:52 Baso % (Auto) 0.9 % 10/14/23 18:52 Neut # (Auto) 5.10 10^3/uL (1.8-7.7) 10/14/23 18:52 Lymph # (Auto) 2.9 10^3/uL (0.8-4.8) 10/14/23 18:52 [place] # (Auto) 0.9 10^3/uL (0.2-0.9) 10/14/23 18:52 Eos # (Auto) 0.3 10^3/uL (0.0-0.8) 10/14/23 18:52 Baso # (Auto) 0.1 10^3/uL (0.0-0.1) 10/14/23 18:52 Nucleated RBC % (auto) 0 % 10/14/23 18:52 Nucleated RBCs # 0.0 /100WBC 10/14/23 18:52 Sodium 138 mmol/L (136-145) 10/14/23 18:52 Potassium 4.3 mmol/L (3.5-5.1) 10/14/23 18:52 Chloride 100 mmol/L (98-107) 10/14/23 18:52 Carbon Dioxide 26 mmol/L (22-29) 10/14/23 18:52 Anion Gap 16.3 (5-19) 10/14/23 18:52 BUN 8 mg/dL (8-23) 10/14/23 18:52 Creatinine 0.8 mg/dL (0.7-1.2) 10/14/23 18:52 GFR Calculation 98.0 mL/min (90-130) 10/14/23 18:52 Glucose 122 mg/dL (65-115) H 10/14/23 18:52 Calculated Osmolality 286 mOsm/kg (285-295) 10/14/23 18:52 Calcium 9.0 mg/dL (8.5-10.5) 10/14/23 18:52 Total Bilirubin 0.3 mg/dL (0.15-1.2) 10/14/23 18:52 AST 13 U/L (0-40) 10/14/23 18:52 ALT 14 U/L (0-41) 10/14/23 18:52 Alkaline Phosphatase 91 U/L (40-130) 10/14/23 18:52 Total Protein 6.9 g/dL (6.6-8.7) 10/14/23 18:52 Albumin 4.2 g/dL (3.5-5.2) 10/14/23 18:52 Globulin 2.7 g/dL (1.3-4.6) 10/14/23 18:52 Lipase 16 U/L (13-60) 10/14/23 18:52 Urine Color Yellow (Yellow) 10/14/23 20:35 Urine Appearance Clear (CLEAR) 10/14/23 20:35 Urine pH 6 (5-7) 10/14/23 20:35 Ur Specific [place] 1.015 (1.005-1.030) 10/14/23 20:35 Urine Protein Neg (Negative) 10/14/23 20:35 Urine Glucose (UA) Norm (Normal) 10/14/23 20:35 Urine Ketones Negative (Negative) 10/14/23 20:35 Urine Blood Neg (Negative) 10/14/23 20:35 Urine Nitrate Negative (Negative) 10/14/23 20:35 Urine Bilirubin Neg (Negative) 10/14/23 20:35 Urine Urobilinogen Norm mg/dL (Negative) 10/14/23 20:35 Ur Leukocyte Esterase Negative (Negative) 10/14/23 20:35 All radiology interpretation(s) finalized by discharge Discharge Plan Discharge Patient Disposition: Home Clinical Impression: Abdominal wall pain in left flank, Chronic prostatitis Condition: Stable Prescriptions: New Bactrim DS 800-160 mg tablet 1 tab PO BID Qty: 14 0RF Bactrim DS 800-160 mg tablet 1 tab PO BID Qty: 180 0RF No Action Excedrin Migraine 250-250-65 mg tablet 1 tab PO DAILY PRN (Reason: pain) triamcinolone acetonide 0.1 % cream 1 applic topical BID Qty: 30 1RF nystatin 100,000 unit/gram cream 1 applic topical DAILY Qty: 30 1RF clomipramine 50 mg capsule 250 mg PO .HS Qty: 150 11RF clonazepam [Klonopin] 0.5 mg tablet 0.25 mg PO BID Qty: 30 5RF trazodone 100 mg tablet 100 mg PO .HS Qty: 30 11RF paliperidone [Invega] 9 mg tablet extended release 24hr 9 mg PO .HS Qty: 90 11RF loratadine 10 mg tablet See Rx Instructions .ROUTE .COMPLEX Qty: 90 11RF Dose Instruction: TAKE 1 TABLET BY MOUTH EVERY MORNING Rx Instructions: TAKE 1 TABLET BY MOUTH EVERY MORNING propranolol 20 mg tablet See Rx Instructions .ROUTE .COMPLEX Qty: 60 11RF Dose Instruction: TAKE 1 TABLET BY MOUTH AT NOON AND EVERY EVENING Rx Instructions: TAKE 1 TABLET BY MOUTH AT NOON AND EVERY EVENING polyethylene glycol 3350 17 gram/dose powder See Rx Instructions .ROUTE .COMPLEX Qty: 1530 11RF Dose Instruction: DISSOLVE CONTENTS OF 1 SCOOPFUL (17 GRAMS) AND TAKE BY MOUTH DAILY Rx Instructions: DISSOLVE CONTENTS OF 1 SCOOPFUL (17 GRAMS) AND TAKE BY MOUTH DAILY celecoxib 100 mg capsule See Rx Instructions .ROUTE .COMPLEX Qty: 60 11RF Dose Instruction: TAKE ONE CAPSULE BY MOUTH AT NOON AND IN THE EVENING Rx Instructions: TAKE ONE CAPSULE BY MOUTH AT NOON AND IN THE EVENING pantoprazole 40 mg tablet,delayed release (DR/EC) See Rx Instructions .ROUTE .COMPLEX Qty: 30 11RF Dose Instruction: TAKE 1 TABLET BY MOUTH EVERY MORNING Rx Instructions: TAKE 1 TABLET BY MOUTH EVERY MORNING acyclovir 200 mg capsule See Rx Instructions .ROUTE .COMPLEX Qty: 30 11RF Dose Instruction: TAKE 1 CAPSULE BY MOUTH EVERY MORNING Rx Instructions: TAKE 1 CAPSULE BY MOUTH EVERY MORNING docusate sodium 100 mg capsule 100 mg PO BID Qty: 60 11RF fluticasone propionate 50 mcg/actuation spray,suspension See Rx Instructions .ROUTE .COMPLEX Qty: 16 11RF Dose Instruction: USE 1 SPRAY INTRANASALLY TWICE DAILY Rx Instructions: USE 1 SPRAY INTRANASALLY TWICE DAILY tamsulosin [Flomax] 0.4 mg capsule 0.4 mg PO BID Qty: 60 5RF Discharge Orders: Discharge ED (Routine); Ordered 10/14/23 Ordered By: Travis Robison Referrals: Genaro Manzo DO [Primary Care Provider] - 1 week Patient Instructions: Abdominal Pain (ED) Activity Restrictions/Additional Instructions: Please follow-up with your family practice physician within neck 7 to 10 days for further evaluation and treatment. 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
[2023-10-14 20:48] LABS: Add Urine Microscopic? NO; Bilirubin Urine Neg (Negative); Blood Urine Neg (Negative); Charge for UA Resulting for Rev; Glucose Urine UA Norm (Normal); Ketones Urine Negative (Negative); Leukocyte Esterase Urine Negative (Negative); Nitrate Urine Negative (Negative); Protein Urine Neg (Negative); Specific Gravity, Urine 1.015 (1.005-1.030); Urine Appearance Clear (CLEAR); Urine Color Yellow (Yellow); Urobilinogen Urine Norm (Negative); pH Urine 6 (5-7)
== END 2023-10-14 21:23 | disposition home or self-care (01) ==
PROVIDERS: Emergency Medicine; Emergency Provider Emergency Medicine; PCP Family Medicine
DX: N41.1 Chronic prostatitis (principal); R10.9 Unspecified abdominal pain; Z87.891 Personal history of nicotine dependence
CPT/HCPCS: 36415; 74176; 80053; 81003; 83690; 85025; 99284

== ENCOUNTER → 2023-12-23 14:07 | Outpatient (BNVA) | payer MEDICAID, SELFPAY ==
[2023-09-23 09:51] VITALS: BP 131/79; BMI 37.7
== END ==
PROVIDERS: PCP Family Medicine; Visit Provider Nurse Practitioner Family
DX: R30.0 Dysuria (principal); K59.01 Slow transit constipation
CPT/HCPCS: 81000

== ENCOUNTER → 2024-03-16 11:46 | Outpatient (BNVA) | payer MEDICAID, SELFPAY ==
[2024-02-08 10:09] VITALS: BP 131/79; BMI 37.7
== END ==
PROVIDERS: PCP Family Medicine; Visit Provider Family Medicine
DX: N39.0 Urinary tract infection, site not specified (principal)
CPT/HCPCS: 81000

== ENCOUNTER → 2024-08-17 11:18 | Outpatient (BNVA) | payer OTHER, SELFPAY ==
[2024-02-08 10:09] VITALS: BP 131/79; BMI 37.7
== END ==
PROVIDERS: PCP Family Medicine; Visit Provider Psychiatry & Neurology Psychiatry
DX: F25.9 Schizoaffective disorder, unspecified (principal); Z79.899 Other long term (current) drug therapy
CPT/HCPCS: 80053; 80061; 83036; 84443; 85025

== ENCOUNTER → 2024-08-24 11:13 | Outpatient (BNVA) | payer MEDICAID, SELFPAY ==
[2024-08-18 14:58] VITALS: BP 142/81; BMI 37.8
== END ==
PROVIDERS: PCP Family Medicine; Visit Provider Family Medicine
DX: R30.0 Dysuria (principal)
CPT/HCPCS: 81000; 87086

== ENCOUNTER → 2025-01-22 15:53 | Outpatient (BNVA) | payer MEDICAID, SELFPAY ==
[2024-08-18 14:58] VITALS: BP 142/81; BMI 37.8
== END ==
PROVIDERS: PCP Family Medicine; Visit Provider Family Medicine
DX: R31.9 Hematuria, unspecified (principal)
CPT/HCPCS: 81000

== ENCOUNTER → 2025-01-29 10:44 | Outpatient (BNVA) | payer MEDICAID, SELFPAY ==
[2024-08-18 14:58] VITALS: BP 142/81; BMI 37.8
== END ==
PROVIDERS: PCP Family Medicine; Visit Provider Family Medicine
DX: R30.9 Painful micturition, unspecified (principal)
CPT/HCPCS: 81000

== ENCOUNTER → 2025-04-11 10:30 | Outpatient (BNVA) | payer MEDICAID, SELFPAY ==
[2024-08-18 14:58] VITALS: BP 142/81; BMI 37.8
== END ==
PROVIDERS: PCP Family Medicine; Visit Provider Family Medicine
DX: E55.9 Vitamin D deficiency, unspecified (principal); N40.1 Benign prostatic hyperplasia with lower urinary tract symptoms; F25.9 Schizoaffective disorder, unspecified; Z79.899 Other long term (current) drug therapy; R45.89 Other symptoms and signs involving emotional state; E66.9 Obesity, unspecified; K21.9 Gastro-esophageal reflux disease without esophagitis; E83.42 Hypomagnesemia; Z12.5 Encounter for screening for malignant neoplasm of prostate; R30.0 Dysuria; R79.89 Other specified abnormal findings of blood chemistry
CPT/HCPCS: 80053; 80061; 81000; 82306; 82607; 83735; 84439; 84443; 85025; G0103